=== PATIENT | female | born 1940 | race Caucasian/White ===

== ENCOUNTER → 2016-08-19 | Outpatient (CLI) | payer OTHER, MEDICARE ==
--- NOTE | 2016-08-19 11:47 | CPEEG ---
[f rep st] ELECTROENCEPHALOGRAM EEG DATE OF STUDY: 08/19/2016 DATE OF INTERPRETATION: 08/19/2016. INTERPRETATION: Essentially normal EEG during wakefulness and partial sleep. There are no potentially epileptogenic abnormalities present in the recording. REPORT: This EEG contains 8-9 Hz alpha activity over the posterior head regions. There was no abnormal activation at rest, during photic stimulation or hyperventilation. The patient became drowsy and fell into light sleep during the study. During drowsiness, there was mild diffuse theta activity maximal over the bitemporal head regions. This is a normal finding for state of consciousness and age. There was no abnormal activation during drowsiness, during light sleep, or during times of arousal. /[id number]/MODL MTDD
== END ==
LOC: FCPNEURO 09:12
PROVIDERS: ATTEND Psychiatry & Neurology Neurology
DX: R56.9 Unspecified convulsions (principal)

== ENCOUNTER → 2016-10-26 | Outpatient (CLI) | payer OTHER, MEDICARE ==
[~2016-10-26] MED LIST: GADOBUTROL 10 ML VIAL IVP ONE
== END ==
LOC: FIMAGING 12:23
DX: G35 Multiple sclerosis (principal)
CPT/HCPCS: 70553; A9585

== ENCOUNTER → 2017-01-02 | Outpatient (CLI) | payer OTHER, MEDICARE | LOC: FIMAGING 13:42 | PROVIDERS: ATTEND Family Medicine | DX: Z12.31 Encounter for screening mammogram for malignant neoplasm of breast (principal) | CPT/HCPCS: G0202 ==

== ENCOUNTER 2017-03-04 14:25 | Emergency (ER) | payer OTHER, MEDICARE ==
[2017-03-04 14:37] VITALS: RESP 16; TEMP 97.5
[2017-03-04] MEDS ORDERED: LET GEL TOPICAL 1 EA SYR TP ONE ×2 (14:39→14:40)
--- NOTE | 2017-03-04 16:37 | EDPHY ---
H & P Stated Complaint: FALL BACKWARDS, - LOC, SCALP LAC HPI/ROS: CHIEF COMPLAINT: Fall, scalp laceration HISTORY OF PRESENT ILLNESS: Patient complains of fall and head injury. She was sitting on a bench when she fell backwards. She struck her head on a wooden floor. She sustained a laceration that has been bleeding. She denies loss of consciousness. She denies any headache or neck pain. She does have some pain of the area of laceration. No chest or back injury or pain. No abdominal injury or pain. No injury to the arms or legs. No vomiting since the injury. No changes in vision. No difficulty with thought process. No unilateral changes. No sensory changes. No other associated complaints or modifying factors. She does not take any anticoagulants. REVIEW OF SYSTEMS: Ten systems reviewed and are negative unless otherwise noted in the HPI PAST MEDICAL HISTORY: Multiple sclerosis, seizure disorder SOCIAL HISTORY: Lives independently with her FAMILY HISTORY: Noncontributory EXAMINATION General Appearance: Alert, no distress Head: normocephalic. Posterior scalp laceration over the occiput. Difficult to determine length given the presence of dried blood. There is no fluctuance. There is no depression of the skull. There is no Corona sign or raccoon eyes. Eyes: Pupils equal and round, no conjunctival pallor or injection. EOMs intact. No nystagmus ENT, Mouth: Mucous membranes moist. Airway patent Neck: Normal inspection, supple, non-tender. No crepitus, step-off or deformity. Trachea midline Respiratory: Lungs are clear to auscultation. No wheezing, rhonchi or crackles Cardiovascular: Regular rate and rhythm. Pulses intact distally in symmetrically Gastrointestinal: Abdomen is soft and nontender Back: non-tender, no bony abnormalities. No lacerations abrasions or contusions Neurological: GCS 15 A&O. Cranial nerves 2-12 grossly intact. nonfocal, strength is symmetric in all 4 limbs. No pronator drift Skin: Warm and dry, no rash. Laceration to the occiput. No active bleeding. Extremities: Nontender, no pedal edema. Range of motion is symmetric in all 4 extremities without hesitation or deficit Psychiatric: Mood and affect normal DIFFERENTIAL DIAGNOSES: Including but not limited to scalp laceration, hematoma, closed head injury, intracranial hemorrhage, cerebral edema, cerebral contusion, basilar skull fracture MDM: 3:45 p.m. Mechanical fall with closed head injury within the past hour. She has a scalp laceration on the occiput. I can not yet determined the length that she has dried blood. I have administered lidocaine. Will irrigate the wound and re- evaluate for closure. I have ordered CT scans of the head and cervical spine given her age and the nature of her injury. She is awake alert no acute distress. 4:10 p.m. Scalp laceration has been irrigated. I am now able to visualize the entire wound. To 3 cm vertical laceration of the occiput. There is no exposure of the galea. No foreign body. 4:[address] scans as read by me without the aid of the radiologist reveals no acute finding. I have repaired her scalp laceration without complication. She remains awake alert no acute distress. PROCEDURE: Laceration repair Consent: Verbal Location: Scalp Occiput Length of repair: 3 cm Complexity: Simple Layer involvement: Single Anesthesia: Local, 1% Irrigation: Extensive Debridement: Procedure description: Following good anesthesia, the wound was copiously irrigated. Wound bed was explored and there is no foreign body noted. Wound borders were approximated well with good hemostasis. Tolerated well without complication. Suture/Staple material: Wound care: Routine as discussed Suture/Staple removal: Days SUPERVISION: Patient was evaluated in conjunction with the supervising physician. Please see their note for details. Source: Patient, Family Exam Limitations: No limitations - Personal History Current Tetanus Diphtheria and Acellular Pertussis (TDAP): Yes Tetanus Vaccine Date: within last 10 years - Medical/Surgical History Hx Asthma: No Hx Chronic Respiratory Disease: No Hx Diabetes: No Hx Cardiac Disease: No Hx Renal Disease: No Hx Cirrhosis: No Hx Alcoholism: No Hx HIV/AIDS: No Hx Splenectomy or Spleen Trauma: No Other PMH: csection, choly, cosmetic, appy, MS, sz - Social History Smoking Status: Never smoked Constitutional: Initial Vital Signs Temperature (C) 97.5 F 03/04/17 14:33 Heart Rate 85 03/04/17 14:33 Respiratory Rate 16 03/04/17 14:33 Blood Pressure 141/66 H 03/04/17 14:33 O2 Sat (%) 95 03/04/17 14:33 O2 Delivery Mode Room Air Allergies/Adverse Reactions: No Known Allergies Allergy (Unverified 03/26/11 13:38) Home Medications: Medication Instructions Recorded Divalproex [Depakote] 250 mg PO 02/28/11 LORAZEPAM 0 mg PO 02/28/11 Levothyroxine [Synthroid] 50 mcg PO DAILY 02/28/11 PROPRANOLOL HCL [Inderal La] 60 mg PO 02/28/11 QUETIAPINE FUMARATE [Seroquel] 150 mg PO 02/28/11 Sonata 10 mg 02/28/11 lamoTRIgine [Lamictal] 100 mg PO 02/28/11 Albuterol [Proventil Inhaler HFA 2 puffs IH Q4 PRN #1 mdi 08/04/14 (*)] Crestor 03/04/17 PREMARIN 03/04/17 Medical Decision Making - Diagnostics Imaging Results: Imaging Impressions Head CT 03/04/17 15:33 Impression: 1. No acute intracranial findings. 2. Diffuse cerebral atrophy with periventricular and subcortical low attenuation consistent with chronic microvascular ischemic gliosis. - Data Points Medications Given: Discontinued Medications Tetracaine/Epinephrine/Lidocaine (Let Gel Topical) 1 ea TP EDNOW ONE Stop: 03/04/17 14:40 Last Admin: 03/04/17 15:09 Dose: Not Given Departure - Departure Disposition: Home, Routine, Self-Care Clinical Impression: Occipital scalp laceration Qualifiers: Encounter type: initial encounter Qualified Code(s): S01.01XA - Laceration without foreign body of scalp, initial encounter Closed head injury Qualifiers: Encounter type: initial encounter Qualified Code(s): S09.90XA - Unspecified injury of head, initial encounter Condition: Good Instructions: Laceration (ED), Concussion (ED), Head Injury (ED), Staple Care ( ED) Additional Instructions: 1. Daily wound care as discussed 2. Follow up with primary care physician 3. Return here or to primary care physician in 7-10 days for staple removal 4. ED precautions as discussed Referrals: UNKNOWN,PCP [Other] - As per Instructions Bonita Flores MD [Medical Doctor] - As per Instructions
[2017-03-04 16:52] VITALS: BP 117/65; PULSE 75; O2SAT 96
== END 2017-03-04 16:52 | disposition home or self-care (01) ==
PROC: 0HQ0XZZ Repair Scalp Skin, External Approach (ICD-10-PCS; principal; 2017-03-04)
DX: S01.01XA Laceration without foreign body of scalp, initial encounter (principal); W18.00XA Striking against unspecified object with subsequent fall, initial encounter

== ENCOUNTER → 2017-12-23 | Outpatient (CLI) | payer OTHER, MEDICARE | LOC: FIMAGING 13:29 | PROVIDERS: ATTEND Internal Medicine Hematology & Oncology | DX: M79.89 Other specified soft tissue disorders (principal); R79.89 Other specified abnormal findings of blood chemistry ==

== ENCOUNTER → 2018-01-04 | Outpatient (CLI) | payer OTHER, MEDICARE | LOC: FIMAGING 14:56 | PROVIDERS: ATTEND Family Medicine | DX: Z12.31 Encounter for screening mammogram for malignant neoplasm of breast (principal) ==

== ENCOUNTER 2018-02-14 11:32 | Day surgery (SDC) | payer OTHER, MEDICARE ==
[2018-02-14] MEDS ORDERED: LIDOCAINE 1% 2 ML INJ ID PRN (11:38)
[2018-02-14] MEDS ORDERED: LR 1,000 ML IV ONE (11:38)
--- NOTE | 2018-02-14 12:16 | PDANEPAE ---
ANE Past Medical History - Cardiovascular History Hx Hypertension: Yes Hx Arrhythmias: No Hx Chest Pain: No Hx Coronary Artery / Peripheral Vascular Disease: No Hx CHF / Valvular Disease: No Hx Palpitations: No - Pulmonary History Hx COPD: No Hx Asthma/Reactive Airway Disease: Yes Hx Recent Upper Respiratory Infection: No Hx Oxygen in Use at Home: No Hx Sleep Apnea: No Sleep Apnea Screening Result - Last Documented: Negative Pulmonary History Comment: Bronchitis-inhaler. - Neurologic History Hx Cerebrovascular Accident: No Hx Seizures: Yes Hx Dementia: No Neurologic History Comment: Multiple Schlerosis-meds. - Endocrine History Hx Diabetes: No Hypothyroid: Yes Hyperthyroid: No Obesity: no Endocrine History Comment: Hypothyroid-med - Renal History Hx Renal Disorders: No - Liver History Hx Hepatic Disorders: No - Neurological & Psychiatric Hx Hx Neurological and Psychiatric Disorders: Yes Neurological / Psychiatric History Comment: Depression, anxiety. Bipolar-meds. - Cancer History Hx Cancer: No - Congenital Disorder History Hx Congenital Disorders: No - GI History Hx Gastrointestinal Disorders: Yes Gastrointestinal History Comment: Chronic bleed sm. intestine. HX of acid reflux. 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 Chronic anemia. - Chronic Pain History Chronic Pain: Yes (L hip) - Surgical History Prior Surgeries: 2013-bilateral cataract surg. 2002-appi. 1997-GB removed. 1992- facelift. 1987-tummy tuck. 1982-bilateral breast reduction.1969,1972-Csection. T &A age 7. ANE Review of Systems Review of Systems: - Exercise capacity Exercise capacity: limited by disability METS (RN): 4 METS ANE Patient History - Allergies Allergies/Adverse Reactions: No Known Allergies Allergy (Unverified 03/26/11 13:38) - Home Medications Home Medications: LORAZEPAM 0 mg PO 02/28/11 [Last Taken 2 Months Ago ~12/15/17] Levothyroxine [Synthroid] 50 mcg PO DAILY 02/28/11 [Last Taken 02/14/18 08:00] QUETIAPINE FUMARATE [Seroquel] 150 mg PO 02/28/11 [Last Taken 02/13/18 08:00] Sonata 10 mg 02/28/11 [Last Taken 02/12/18] lamoTRIgine [Lamictal] 100 mg PO 02/28/11 [Last Taken 02/14/18 08:00] Crestor 03/04/17 [Last Taken 02/12/18] Aspirin 02/03/18 [Last Taken 02/07/18] HCTZ (*) 02/03/18 [Last Taken 02/13/18 08:00] Herbals/Supplements -Info Only 02/03/18 [Last Taken 02/07/18] Lisinopril 02/03/18 [Last Taken 02/14/18 08:00] Melatonin 02/03/18 [Last Taken 02/12/18] Primidone 02/03/18 [Last Taken 02/14/18 08:00] - Anes Hx Anes Hx: no prior problems - Smoking Hx Smoking Status: Never smoked Marijuana use: No - Alcohol Use Alcohol Use: Rarely - Family Anes Hx Family Anes Hx: neg - N/A Family Hx Anesthesia Complications: none ANE Labs/Vital Signs - Vital Signs Height: 152.4 cm Weight: 47.627 kg ANE Physical Exam - Airway Neck exam: decreased ROM Mallampati Score: Class 2 Mouth exam: normal dental/mouth exam - Pulmonary Pulmonary: no respiratory distress, no rales or rhonchi, clear to auscultation - Cardiovascular Cardiovascular: regular rate and rhythym, no murmur, rub, or gallop - ASA Status ASA Status: III ANE Anesthesia Plan Anesthesia Plan: MAC Total IV Anesthesia: Yes
[2018-02-14] MEDS ORDERED: fentaNYL 100 MCG/2 ML INJ ONE (12:27)
[2018-02-14] MEDS ORDERED: PROPOFOL/EMULSION 500 MG/50 ML BOTTLE IV ONE (12:28)
--- NOTE | 2018-02-14 12:37 | PDGENHP ---
History & Physical Chief Complaint: phx polyps History of Present Illness: 77 year old female with a phx of adenomas presents for surveillance colonoscopy. Pertinent Past, Social, Family History: PMHx: MS. bronchitis, depression, hypothyroid Relevant Physical Exam: HEENT: anicteric. CV: RRR +s1s2. lungs: CTAB. Abd: soft, nt, + bs Cardiorespiratory Assessment: ASA 3
[2018-02-14] MEDS ORDERED: ACETAMINOPHEN 500 MG TAB PO PRN (12:46)
[2018-02-14] MEDS ORDERED: ONDANSETRON 4 MG/2 ML VIAL IVP PRN (12:46)
[2018-02-14] MEDS ORDERED: NALOXONE HCL 0.4 MG/ML INJ IVP PRN (12:46)
[2018-02-14] MEDS ORDERED: PHENYLEPHRINE HCL 100 MCG/ML SYR IVP PRN (12:46)
[2018-02-14] MEDS ORDERED: LR 500 ML IV PRN (12:46)
--- NOTE | 2018-02-14 13:53 | GIREPORT ---
[facility] Surgical Services - Endoscopy Department Patient Name: Latosha Astorga Procedure Date: 02/14/2018 12:19 PM Patient Type: Outpatient Attending / ER Physician: Kurt Garcia MD Procedure: Colonoscopy Indications: High risk colon cancer surveillance: Personal history of colonic polyps Patient Profile: 77 year female with a history of adenomas presents for surveillance colonoscopy. Providers: Kurt Garcia MD Medicines: Monitored Anesthesia Care Complications: No immediate complications. Estimated blood loss: Minimal. Description of Procedure: After obtaining informed consent, the scope was passed under direct vis ion. Throughout the procedure, the patient's blood pressure, pulse, and oxyg en saturations were monitored continuously. The Colonoscope with irrigatio n channel was introduced through the anus and advanced to the cecum, identified by appendiceal orifice and ileocecal valve. The colonoscopy was performed without difficulty. The patient tolerated the procedure well. The quality of the bowel preparation was adequate to identify polyps. Findings: The perianal and digital rectal examinations were normal. Pertinent negatives include no palpable rectal lesions. A 4 mm polyp was found in the cecum. The polyp was sessile. The polyp w as removed with a cold snare. Resection and retrieval were complete. Three sessile polyps were found in the ascending colon. The polyps were 4 to 5 mm in size. These polyps were removed with a cold snare. Resection an d retrieval were complete. A 4 mm polyp was found in the transverse colon. The polyp was sessile. The polyp was removed with a cold snare. Resection and retrieval were compl ete. A 3 mm polyp was found in the transverse colon. The polyp was sessile. The polyp was removed with a cold biopsy forceps. Resection and retrieval w ere complete. A 15 mm polyp was found in the descending colon. The polyp was sessile. The polyp was removed with a piecemeal technique using a cold snare. Resect ion and retrieval were complete. A 2 mm polyp was found in the sigmoid colon. The polyp was sessile. The polyp was removed with a cold biopsy forceps. Resection and retrieval w ere complete. Estimated Blood Loss: Estimated blood loss was minimal. Post Op Diagnosis: - One 4 mm polyp in the cecum, removed with a cold snare. Resected and retrieved. - Three 4 to 5 mm polyps in the ascending colon, removed with a cold sn are. Resected and retrieved. - One 4 mm polyp in the transverse colon, removed with a cold snare. Resected and retrieved. - One 3 mm polyp in the transverse colon, removed with a cold biopsy forceps. Resected and retrieved. - One 15 mm polyp in the descending colon, removed piecemeal using a co ld snare. Resected and retrieved. - One 2 mm polyp in the sigmoid colon, removed with a cold biopsy force ps. Resected and retrieved. Recommendation: - Discharge patient to home (with escort). - Resume previous diet. - Continue present medications. - Repeat colonoscopy in 1 year for surveillance after piecemeal polypec avila. - Await pathology results. - Thank you for allowing me to participate in the care of your patient. Attending Participation: I personally performed the entire procedure. Kurt Garcia MD Kurt Garcia MD 02/14/2018 1:52:44 PM This report has been signed electronicallyKurt Garcia MD Number of Addenda: 0 Note Initiated On: 02/14/2018 12:19 PM Total Procedure Duration Time 0 hours 35 minutes 6 seconds [email or web address]
[2018-02-14 15:03] VITALS: BP 127/60
--- NOTE | 2018-02-14 20:04 | POSTANESTH ---
Post Anesthetic Evaluation Cardiovascular Status: Normal, Stable Respiratory Status: Normal, Stable Level of Consciousness/Mental Status: Can Participate in Eval Pain Control: Adequate, Prn Tx Ordered Nausea/Vomiting Control: Adequate, Prn Tx Ordered Complications Possibly Related to Anesthesia: None Noted
== END 2018-02-14 15:08 | disposition home or self-care (01) ==
LOC: FSGY 11:32
PROVIDERS: ATTEND Internal Medicine Gastroenterology
PROC: 0DBH8ZX Excision of Cecum, Via Natural or Artificial Opening Endoscopic, Diagnostic (ICD-10-PCS; principal; 2018-02-14 13:15)
PROC: 0DBN8ZX Excision of Sigmoid Colon, Via Natural or Artificial Opening Endoscopic, Diagnostic (ICD-10-PCS; principal; 2018-02-14 13:15)
PROC: 0DBL8ZX Excision of Transverse Colon, Via Natural or Artificial Opening Endoscopic, Diagnostic (ICD-10-PCS; principal; 2018-02-14 13:15)
PROC: 0DBK8ZX Excision of Ascending Colon, Via Natural or Artificial Opening Endoscopic, Diagnostic (ICD-10-PCS; principal; 2018-02-14 13:15)
PROC: 0DBM8ZX Excision of Descending Colon, Via Natural or Artificial Opening Endoscopic, Diagnostic (ICD-10-PCS; principal; 2018-02-14 13:15)
DX: Z12.11 Encounter for screening for malignant neoplasm of colon (principal); D12.3 Benign neoplasm of transverse colon; D12.5 Benign neoplasm of sigmoid colon; D12.0 Benign neoplasm of cecum; D12.2 Benign neoplasm of ascending colon; G35 Multiple sclerosis; F32.9 Major depressive disorder, single episode, unspecified; E03.9 Hypothyroidism, unspecified; I10 Essential (primary) hypertension
CPT/HCPCS: J2704; J3010

== ENCOUNTER 2019-01-05 12:04 | Emergency (ER) | payer OTHER, MEDICARE | END 2019-01-05 14:15 | disposition home or self-care (01) ==

== ENCOUNTER → 2019-01-24 | Outpatient (CLI) | payer OTHER, MEDICARE | LOC: FIMAGING 15:13 ==